=== PATIENT | female | born 1990 | race Two or more races ===

== ENCOUNTER → 2016-04-22 | Outpatient (CLI) | payer BC, OTHER ==
[2016-04-25 17:49] LABS: TB-NIL <0.00 IU/mL
== END | disposition home or self-care (01) ==
LOC: LAB 08:19
PROVIDERS: ATTEND Internal Medicine
DX: Z01.84 Encounter for antibody response examination (principal)
CPT/HCPCS: 86480

== ENCOUNTER 2017-02-22 12:30 | Emergency (ER) | payer BC ==
[~2017-02-22] VITALS: Wt 45.4 kg
--- NOTE | 2017-02-22 12:42 | ERD ---
ER Documentation Chief Complaint Chief Complaint HERE FOR LAB DRAW WITH NO SIGNS OF DISTRESS. NO PAIN HPI Patient is a 26-year-old female who presents for a laboratory draw. 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 The patient has no complaints. She just wants this test document so that she can start schooling. ROS All systems reviewed and are negative except as per history of present illness. PMhx/Soc Medical and Surgical Hx: pt denies Medical Hx Physical Exam Vitals Vital Signs Date Time Temp Pulse Resp B/P Pulse Ox O2 Delivery O2 Flow Rate FiO2 02/22/17 12:35 98.8 58 20 115/75 99 Physical Exam Const: No acute distress Neur: Awake and alert Psych: Normal Mood and Affect Procedures/MDM Patient had a QuantiFERON gold test sent to the lab. She will be discharged in stable condition. She can follow-up with her primary doctor. She can return for any worsening symptoms. Departure Diagnosis: Primary Impression: Encounter for laboratory test Condition: Fair Patient Instructions: TB Screening (Whole Blood) Referrals: RICHY BOWIE MD (PCP) Additional Instructions: Call your primary care doctor TOMORROW for an appointment during the next 1 WEEK.Tell the certified legal secretary specialist that you were referred from this facility.See the doctor sooner or return here if your condition worsens before your appointment time. MARGARET MCCALL MD Feb 22, 2017 12:42
== END 2017-02-22 14:44 | disposition home or self-care (01) ==
LOC: E/R 12:30
DX: Z00.00 Encounter for general adult medical examination without abnormal findings (principal)
CPT/HCPCS: 86480; 99283